=== PATIENT | female | born 1960 | race Caucasian/White ===

== ENCOUNTER 2016-10-20 04:55 | Emergency (ER) | payer MEDICAID, OTHER ==
[2016-10-20] MEDS ORDERED: IOPAMIDOL 370 (76%) 100 ML VIAL IV ONE (04:56)
[2016-10-20 05:15] LABS: URINE BILIRUBIN NEGATIVE (NEGATIVE); URINE BLOOD TRACE (NEGATIVE); URINE GLUCOSE (UA) NEGATIVE (NEGATIVE); URINE LEUKOCYTE ESTERASE NEGATIVE (NEGATIVE); URINE NITRITE NEGATIVE (NEGATIVE); URINE PROTEIN NEGATIVE (NEGATIVE); URINE UROBILINOGEN NORMAL (0-1 mg/dl)
[2016-10-20 05:16] LABS: URINE APPEARANCE CLEAR; URINE COLOR YELLOW
[2016-10-20 05:17] LABS: HCG,QUALITATIVE URINE NEGATIVE
[2016-10-20] MEDS ORDERED: HYDROCODONE/ACETAMINOPHEN 5/325MG TABLET ONE (05:18)
[2016-10-20 05:22] LABS: URINE BACTERIA FEW; URINE EPITHELIAL CELLS FEW /hpf; URINE WBC 0-1 /hpf
[2016-10-20] MEDS ORDERED: MORPHINE SULFATE 4 MG/ML SYRINGE ONE (05:24)
[2016-10-20] MEDS ORDERED: MORPHINE SULFATE 2 MG/ML SYRINGE ONE (05:24)
[2016-10-20] MEDS ORDERED: LACTATED RINGERS 1,000 ML ONE (05:24)
[2016-10-20 06:04] LABS: ABSOLUTE NEUTROPHIL COUNT 13.8 K/mm3 (1.8-7.7); BASO # 0.1 K/mm3 (0.0-0.2); BASO % 0.3 % (0.2-1.0); EOS # 0.2 (0.0-0.5); HEMATOCRIT 37.7 % (37.0-47.0); IMM NEUT # 0.1 K/mm3 (0-0.2); IMM NEUT% 0.5 % (0-1); LYMPH # 1.9 (1.0-4.8); LYMPH % 10.9 % (15-45); MEAN CELL VOLUME 89.5 fl (81.0-99.0); MEAN CORPUSCULAR HEMOGLOBIN 30.9 pg (27.0-31.0); MEAN CORPUSCULAR HGB CONC 34.5 g/dl (33.0-37.0); MEAN PLATELET VOLUME 8.7 fl (7.4-10.4); MONO # 1.4 (0.0-0.8); MONO % 7.9 % (4-12); NEUT % 79.4 % (43-75); PLATELET COUNT 323 K/mm3 (130-400)
[2016-10-20 06:21] LABS: ALB/GLOB RATIO 1.4 (>1.0); ALBUMIN 4.1 gm/dL (3.5-5.7); CALCIUM 9.1 mg/dL (8.6-10.3)
--- NOTE | 2016-10-20 08:36 | CT ---
Exam Type: ABD/PELVIS W/ CON Date and Time: 10/20/2016 5:27 AM Clinical information: Left flank pain for 4 days. Comparison: 06/13/2008. Procedure: Imaging device: [employer] Aquilion [address] scanner 1 mm axial images were obtained through the abdomen and pelvis. Stacked reconstructed 3, 4 and 5 mm images were photographed in the axial coronal and sagittal planes. No oral contrast was utilized for this examination. 100 ml of Isovue-370 was injected intravenously. Exam: with intravenous contrast. FINDINGS: Lung bases: Patchy airspace consolidation is seen within the left lower lobe. No effusion or pneumothorax is visualized. Liver: the liver is homogeneous with no discrete abnormality visualized. No definite findings of biliary dilatation are observed. Spleen: The spleen is homogeneous and does not appear to be enlarged. Gallbladder: Normal without enlargement or evidence of adjacent inflammatory changes. Pancreas: The extrahepatic biliary tree and the pancreatic duct are mildly prominent. In the coronal plane, the common bile duct tapers to the pancreatic head, though no discrete mass is visualized. Adrenal glands: Normal without enlargement or evidence of adjacent inflammatory changes. Abdominal aorta: Atherosclerotic vascular calcification is noted. There is no focal aneurysm visualized. Kidneys: The kidneys appear to be symmetric in size with no perinephric inflammatory changes are identified. No current findings of hydronephrosis are seen. Bowel structures: Distal colonic diverticulosis is identified without associated inflammatory stranding. There is a large amount of stool within the visualized colon. No definite findings of obstruction are seen. Appendix: Not well visualized. Bladder: The bladder is of normal contour. No wall thickening or significant distention is observed. Hernia: No abdominal wall or inguinal hernia is visualized on this examination. Adenopathy: No significant enlarged adenopathy is visualized. Osseous structures: Lumbar degenerative changes are present, particularly at L4-5 and L5-S1. Pelvic structures: There is incidental note made of a low-attenuation structure anterior to the right femoral neck measuring 3.4 x 2.7 cm in size. The attenuation value is measured at approximately 12 Hounsfield units near that of fluid though dedicated imaging is recommended. IMPRESSION: 1. A left basilar infiltrate. 2. Mild prominence of the extrahepatic biliary tree and the pancreatic duct with smooth tapering of the distal common bile duct though a discrete obstructing mass is not visualized. 3. A large quantity of stool seen throughout the colon. 4. Distal colonic diverticulosis without evidence of diverticulitis. 5. Nonvisualization of the appendix. 6. A low-attenuation mass anterior to the right femoral neck measuring 3.4 x 2.7 cm in size. This was retrospectively seen on prior CT exam of 10/11/2010, though appears to have increased in size. Consideration may be given to dedicated MRI imaging with and without gadolinium enhancement for further evaluation. The findings were called to the emergency room at 0636 hours, 10/20/2016, by [facility].
== END 2016-10-20 07:46 | disposition home or self-care (01) ==
LOC: ED 04:55
DX: R10.9 Unspecified abdominal pain (principal); B19.20 Unspecified viral hepatitis C without hepatic coma; F17.210 Nicotine dependence, cigarettes, uncomplicated
CPT/HCPCS: 83605; 83690; 81025; 85025; 80053; 84484; 81001; 74177; 87804; 99284 ×2; 96374; 93005; J2270 ×2; J7120; Q9967